=== PATIENT | female | born 1965 | race African-American/Black ===

== ENCOUNTER → 2016-11-20 | Outpatient (CLI) | payer OTHER ==
[2016-06-26 09:27] VITALS: BP 150/83
[~2016-11-20] MED LIST: DOCU-27 PO; HEPARIN PF 500 UNIT/5 ML DISP.SYRIN. IV ONE; HYDR-2678 PO; IBUP-1060 PO; IBUP100O7 PO; IOHEXOL 240 MG/ML 50ML VIAL. PO ONE; IOHEXOL 300 MG/ML 75 ML VIAL IV ONE; MORP15TA PO; OXYC1TAB7 PO
--- NOTE | 2016-11-20 13:10 | RAD ---
EXAM: CT OF THE CHEST, ABDOMEN AND PELVIS WITH INTRAVENOUS CONTRAST. HISTORY: Restaging fallopian tube cancer. TECHNIQUE: Computed tomography of the chest, abdomen and pelvis was performed after the intravenous administration of 75 mL Omnipaque 300. COMPARISON: None. FINDINGS: Bone windows reveal no clearly suspicious lesions. Sclerosis about the left greater than right sacroiliac joints and pubic symphysis are likely degenerative. A right-sided port catheter has its tip in the superior cavoatrial junction. There are changes of bilateral mastectomy. There are with small left supraclavicular lymph nodes. There are no pathologically enlarged mediastinal or axillary lymph nodes. There is no pleural or pericardial effusion. There is at least mild left ventricular enlargement. There are no suspicious pulmonary nodules. There is mild atelectasis or scarring in the left base. There is a 1 cm cyst in the left kidney. The pancreas, adrenal glands, gallbladder, liver and spleen are unremarkable. There are no pathologically enlarged lymph nodes. The previously noted left adnexal lesion is smaller now reveals a normal ovary. There is trace free pelvic fluid. There are no clear peroneal oral mental masses. Left colonic diverticulosis is mild to moderate. There is no obstruction. There is no hydronephrosis. IMPRESSION: 1. Previously noted left supraclavicular, mediastinal, left hilar, and retroperitoneal lymphadenopathy have resolved. No evidence of recurrence. 2. The left adnexal lesion has also mostly resolved. *One or more of the following individualized dose reduction techniques were utilized for this examination: 1. Automated exposure control. 2. Adjustment of the mA and/or kV according to patient size. 3. Use of iterative reconstruction technique.
== END | disposition home or self-care (01) ==
LOC: CT 08:49
PROVIDERS: ATTEND Internal Medicine Hematology & Oncology
DX: C57.00 Malignant neoplasm of unspecified fallopian tube (principal)
CPT/HCPCS: 71260; 74177; Q9966; Q9967

== ENCOUNTER → 2016-12-17 | Outpatient (CLI) | payer OTHER ==
[2016-06-26 09:27] VITALS: BP 150/83
[~2016-12-17] MED LIST changes: -HEPARIN PF 500 UNIT/5 ML DISP.SYRIN. IV ONE; -IOHEXOL 240 MG/ML 50ML VIAL. PO ONE; -IOHEXOL 300 MG/ML 75 ML VIAL IV ONE
--- NOTE | 2016-12-17 14:32 | RAD ---
Indication cough for 2 weeks. PA and lateral views of the chest were obtained. Comparison is made to most recent examination available 04/12/2013. Note is made of a CT examination of the chest 11/20/2016 interpreted as essentially unremarkable Heart size is at the upper limits of normal but unchanged. There is some interstitial prominence in the lungs new relative to the previous plain film exam and not suggested on the referenced CT study one month ago. Findings may reflect interstitial edema or an interstitial inflammatory process, interstitial pneumonitis. There is no consolidated pneumonia. There is no pleural fluid. There is no pneumothorax. A right Port-A-Cath is noted. There is mild scoliosis IMPRESSION: Interval development of interstitial prominence suggesting mild interstitial edema or an interstitial inflammatory process.
== END | disposition home or self-care (01) ==
LOC: RAD 13:32
PROVIDERS: ATTEND Nurse Practitioner Adult Health
DX: R05 Cough (principal)
CPT/HCPCS: 71020

== ENCOUNTER → 2017-04-14 | Outpatient (CLI) | payer OTHER ==
[2016-06-26 09:27] VITALS: BP 150/83
[~2017-04-14] MED LIST changes: +ANAS1TAB3 PO; +CONTRAST GIVEN MC PRN; +DOCU-109 PO; -DOCU-27 PO; +GABA-586 PO; +HEPARIN PF 500 UNIT/5 ML DISP.SYRIN. IV ONE; +IBUP100O24 PO; -IBUP100O7 PO; +IOHEXOL 240 MG/ML 50ML VIAL. PO ONE; +IOHEXOL 300 MG/ML 75 ML VIAL IV ONE; +LETR2.5T18 PO; +OXYC-328 PO
--- NOTE | 2017-04-14 10:09 | RAD ---
EXAM: CT OF THE CHEST, ABDOMEN AND PELVIS WITH INTRAVENOUS CONTRAST. HISTORY: Fallopian tube carcinoma. TECHNIQUE: Computed tomography of the chest, abdomen and pelvis was performed after the intravenous administration of 75 mL Omnipaque 300. COMPARISON: 11/20/2016. 06/14/2016. FINDINGS: Bone windows reveal no suspicious lesions. Subchondral cysts in both superior acetabula reflect hip osteoarthritis. There is also mild degenerative sclerosis about the sacroiliac joints and pubic symphysis. A right-sided port catheter has its tip in the superior cavoatrial junction. Bilateral mastectomy changes are noted. There are no pathologically enlarged supraclavicular, axillary or mediastinal lymph nodes. Calcified mediastinal lymph nodes are likely secondary to old granulomatous disease. There is no pleural or pericardial effusion. The heart is not enlarged. A 2 mm nodule medially in the left apex is stable and likely benign at this small size. There are no clearly suspicious nodules. There are no pathologically enlarged lymph nodes. The previously noted left adnexal mass has resolved. The uterus is surgically absent. There is no ascites. No peritoneal/omental masses are seen. There is a 1 cm cyst in the left kidney. The right kidney is unremarkable. The liver, gallbladder, pancreas, adrenal glands and spleen appear normal. Sigmoid diverticulosis is mild to moderate. There is no obstruction. IMPRESSION: 1. Previously noted supraclavicular, mediastinal and retroperitoneal lymphadenopathy have resolved. The left adnexal mass is no longer detectable. No evidence of active disease. *One or more of the following individualized dose reduction techniques were utilized for this examination: 1. Automated exposure control. 2. Adjustment of the mA and/or kV according to patient size. 3. Use of iterative reconstruction technique.
== END | disposition home or self-care (01) ==
LOC: CT 08:22
PROVIDERS: ATTEND Internal Medicine Hematology & Oncology
DX: C57.00 Malignant neoplasm of unspecified fallopian tube (principal); M25.512 Pain in left shoulder; G89.29 Other chronic pain; Z15.01 Genetic susceptibility to malignant neoplasm of breast; Z15.02 Genetic susceptibility to malignant neoplasm of ovary
CPT/HCPCS: 71260; 74177; Q9966; Q9967

== ENCOUNTER → 2017-04-29 | Outpatient (CLI) | payer OTHER ==
[2016-06-26 09:27] VITALS: BP 150/83
[~2017-04-29] MED LIST changes: -CONTRAST GIVEN MC PRN; -HEPARIN PF 500 UNIT/5 ML DISP.SYRIN. IV ONE; -IOHEXOL 240 MG/ML 50ML VIAL. PO ONE; -IOHEXOL 300 MG/ML 75 ML VIAL IV ONE
--- NOTE | 2017-04-29 13:45 | RAD ---
INDICATION: Low back pain and left leg pain. Chronic symptoms. TECHNIQUE: Sagittal T1, sagittal T2, sagittal STIR, axial T1, and axial T2 sequences are provided. No comparison is available. FINDINGS: There is no malalignment. There is no marrow edema. There is no worrisome marrow lesion. There is an L3 hemangioma, small. There is mild disc desiccation at L3-L4 through L5-S1. Disc height is maintained. The conus medullaris is normal in signal intensity and in position. There is a probable left renal cyst partially included on the first image. The numbering system assumes 5 lumbar type vertebral bodies. Findings by individual level are as follows: L1-L2: There is minimal facet hypertrophy without canal or foraminal compromise. L2-L3: There is minimal facet hypertrophy without canal or foraminal compromise. L3-L4: There is a mild disc bulge and mild facet and ligamentum flavum hypertrophy. There is no canal stenosis, midline AP diameter of the thecal sac still 12 mm. There is no foraminal narrowing. L4-L5: Mild disc bulge and minimal facet hypertrophy are noted, without canal or foraminal compromise. L5-S1: There is a shallow central protrusion with annular fissure. There is no canal or foraminal compromise at any level. IMPRESSION: No high-grade canal or foraminal compromise at any level. Degenerative disc disease and facet and ligamentum flavum hypertrophy are mild. Electronically signed by: Gurwinder Magallanes MD (04/29/2017 1:42 PM) [id number]
== END | disposition home or self-care (01) ==
LOC: MRI 13:31
PROVIDERS: ATTEND Internal Medicine Hematology & Oncology
DX: M51.36 Other intervertebral disc degeneration, lumbar region (principal); M79.605 Pain in left leg
CPT/HCPCS: 72148

== ENCOUNTER → 2017-09-12 | Day surgery (SDC) | payer OTHER ==
[~2017-09-12] MED LIST changes: -ANAS1TAB3 PO; -DOCU-109 PO; -GABA-586 PO; -HYDR-2678 PO; -IBUP-1060 PO; -IBUP100O24 PO; +IV RINGERS,LACTATED 1000ML 1,000 ML IV; -LETR2.5T18 PO; +LIDOCAINE 1% PF 2 ML VIAL. ID; +LIDOCAINE 2% PF Vial for OR 5 ML VIAL.; +MIDAZOLAM HCL/PF 2 MG/2 ML VIAL. IV; -MORP15TA PO; -OXYC-328 PO; -OXYC1TAB7 PO; +PROPOFOL 20 ML IV; +fentaNYL PF VIAL 100 MCG/2 ML VIAL IV
[2017-09-12] MEDS: IV RINGERS,LACTATED 1000ML 1,000 ML IV (09:35)
[2017-09-12 09:39] LABS: POC GLUCOSE 159 mg/dL (70-99)
== END | disposition home or self-care (01) ==
LOC: ENDOS 09:03
DX: Z12.11 Encounter for screening for malignant neoplasm of colon (principal); K64.0 First degree hemorrhoids; K57.30 Diverticulosis of large intestine without perforation or abscess without bleeding; I10 Essential (primary) hypertension; E11.9 Type 2 diabetes mellitus without complications; Z90.710 Acquired absence of both cervix and uterus; Z79.84 Long term (current) use of oral hypoglycemic drugs; M19.90 Unspecified osteoarthritis, unspecified site; F17.210 Nicotine dependence, cigarettes, uncomplicated; Z85.3 Personal history of malignant neoplasm of breast; Z72.89 Other problems related to lifestyle; Z90.13 Acquired absence of bilateral breasts and nipples; Z85.42 Personal history of malignant neoplasm of other parts of uterus
CPT/HCPCS: 45378; 82962; J2704

== ENCOUNTER → 2017-11-10 | Outpatient (CLI) | payer OTHER ==
[~2017-11-10] MED LIST changes: +CONTRAST GIVEN MC; -IV RINGERS,LACTATED 1000ML 1,000 ML IV; -LIDOCAINE 1% PF 2 ML VIAL. ID; -LIDOCAINE 2% PF Vial for OR 5 ML VIAL.; -MIDAZOLAM HCL/PF 2 MG/2 ML VIAL. IV; -PROPOFOL 20 ML IV; -fentaNYL PF VIAL 100 MCG/2 ML VIAL IV
[2017-11-10] MEDS: HEPARIN PF 500 UNIT/5 ML DISP.SYRIN. IV ×2 (10:04)
[2017-11-10] MEDS: IOHEXOL 300 MG/ML 100ML VIAL. IV ×2 (10:06)
[2017-11-10] MEDS: IOHEXOL 240 MG/ML 50ML VIAL. PO ×2 (10:12)
== END | disposition home or self-care (01) ==
LOC: CT 08:35
DX: C57.00 Malignant neoplasm of unspecified fallopian tube (principal); K22.9 Disease of esophagus, unspecified; I21.9 Acute myocardial infarction, unspecified; I51.7 Cardiomegaly; K57.30 Diverticulosis of large intestine without perforation or abscess without bleeding; N28.1 Cyst of kidney, acquired; M16.0 Bilateral primary osteoarthritis of hip; M41.84 Other forms of scoliosis, thoracic region
CPT/HCPCS: 70491; 71260; 74177; Q9966; Q9967

== ENCOUNTER → 2018-04-30 | Outpatient (CLI) | payer OTHER ==
[~2018-04-30] MED LIST changes: -CONTRAST GIVEN MC; +CONTRAST GIVEN. MC
[2018-04-30] MEDS: HEPARIN PF 500 UNIT/5 ML DISP.SYRIN. IV (09:30)
[2018-04-30 10:51] LABS: ALBUMIN 3.5 g/dL (3.4-5.0); ALK PHOS 50 U/L (46-116); ALT (SGPT) 20 U/L (14-59); ANION GAP 10 (6-14); AST (SGOT) 12 U/L (15-37); BLOOD UREA NITROGEN 12 mg/dL (7-20); BUN/CREATININE RATIO 17 (6-20); CALCIUM 8.7 mg/dL (8.5-10.1); CARBON DIOXIDE 23 mmol/L (21-32); CHLORIDE 106 mmol/L (98-107); CREATININE 0.7 mg/dL (0.6-1.0); GFR 106.7; GLUCOSE 130 mg/dL (70-99); POTASSIUM 3.9 mmol/L (3.5-5.1); SODIUM 139 mmol/L (136-145); TOTAL BILIRUBIN 0.3 mg/dL (0.2-1.0); TOTAL PROTEIN 6.9 g/dL (6.4-8.2)
[2018-04-30] MEDS: IOHEXOL 300 MG/ML 100ML VIAL. IV (10:55)
[2018-04-30] MEDS: IOHEXOL 240 MG/ML 50ML VIAL. PO (10:55)
== END | disposition home or self-care (01) ==
LOC: CT 08:09
DX: K57.30 Diverticulosis of large intestine without perforation or abscess without bleeding (principal); M47.898 Other spondylosis, sacral and sacrococcygeal region; M41.84 Other forms of scoliosis, thoracic region; C50.911 Malignant neoplasm of unspecified site of right female breast; C50.912 Malignant neoplasm of unspecified site of left female breast; C57.00 Malignant neoplasm of unspecified fallopian tube; I10 Essential (primary) hypertension; E11.9 Type 2 diabetes mellitus without complications; Z17.1 Estrogen receptor negative status [ER-]; Z87.891 Personal history of nicotine dependence
CPT/HCPCS: 36415; 71260; 74177; 80053; Q9966; Q9967

== ENCOUNTER → 2018-11-20 | Outpatient (CLI) | payer OTHER ==
[2017-09-12 10:19] VITALS: BP 149/61
[~2018-11-20] MED LIST changes: +AMLO5TAB10 PO; +ANAS1TAB47 PO; +CHOL100013 PO; -CONTRAST GIVEN. MC; +DOCU-109 PO; +FEMARA2.5 MG PO; +GABA300C18 PO; +HEPARIN PF 500 UNIT/5 ML DISP.SYRIN. IV ONE; +HYDR-2678 PO; +IBUP-1060 PO; +IBUP100O25 PO; +ICOS1CAP PO; +IOHEXOL 240 MG/ML 50ML VIAL. PO ONE; +IOHEXOL 300 MG/ML 100ML VIAL. IV ONE; +METF500T16 PO; +MORP15TA PO; +OLAP150T PO; +OLAP50CA PO; +OXYC1TAB22 PO; +OXYC1TAB7 PO; +SITA100T PO
--- NOTE | 2018-11-20 12:36 | RAD ---
PQRS Compliance statement: One or more of the following individualized dose reduction techniques were utilized for this examination: 1. Automated exposure control. 2. Adjustment of the mA and/or kV according to patient size. 3. Use of iterative reconstruction technique. Indication:BILAT BREAST/FALLOPIAN CA TECHNIQUE: CT chest, abdomen and pelvis with IV contrast with multiplanar reformats. COMPARISON: 04/30/2018 FINDINGS: Right chest wall Chemo-Port is seen with its tip in the SVC. Heart is normal in size. No pericardial or pleural effusion. No axillary, mediastinal or hilar adenopathy. Central airways are patent. Stable 2 mm nodule in the medial aspect of the left upper lobe (series 2 image 10). No suspicious bony lesion. Liver, spleen, gallbladder, pancreas, adrenals and right kidney within normal limits. Simple appearing cyst is seen in the left kidney measuring 1.6 cm. No enlarged retroperitoneal or pelvic adenopathy. No free pelvic fluid or ascites. No bowel obstruction. Diffuse colonic diverticulosis. Status post hysterectomy. Urinary bladder is within normal limits. No suspicious bony lesion. IMPRESSION: No evidence metastatic disease. Electronically signed by: Marko Hernandez DO (11/20/2018 12:33 PM) [id number]
== END | disposition home or self-care (01) ==
LOC: CT 09:40
PROVIDERS: ATTEND Internal Medicine Hematology & Oncology
DX: K57.30 Diverticulosis of large intestine without perforation or abscess without bleeding (principal); R91.1 Solitary pulmonary nodule; Z90.710 Acquired absence of both cervix and uterus; Z85.3 Personal history of malignant neoplasm of breast; Z85.42 Personal history of malignant neoplasm of other parts of uterus
CPT/HCPCS: 71260; 74177; Q9966; Q9967

== ENCOUNTER 2019-10-04 09:36 | Emergency (ER) | payer OTHER ==
[~2019-10-04] VITALS: Ht 170.2 cm; Wt 96.2 kg
[~2019-10-04 09:36] MED LIST changes: -HEPARIN PF 500 UNIT/5 ML DISP.SYRIN. IV ONE; -IOHEXOL 240 MG/ML 50ML VIAL. PO ONE; -IOHEXOL 300 MG/ML 100ML VIAL. IV ONE
[2019-10-04 10:15] VITALS: BP 146/65
--- NOTE | 2019-10-04 10:57 | PHYS DOC ---
Past Medical History Past Medical History: Cancer Additional Past Medical Histor: breast CA with chemo Past Surgical History: , Hysterectomy, Tonsillectomy Additional Past Surgical Histo: dbl mastectomy Alcohol Use: Occasionally Drug Use: None Adult General Chief Complaint Chief Complaint: THUMB HPI HPI Patient is a 54 year old female who presents after falling and ice on July and hurting her right thumb. The patient states that the thumb is never healed and still hurts. She rates it as 8 out of 10 in severity and sharp. Review of Systems Review of Systems Constitutional: Denies fever or chills [] Eyes: Denies change in visual acuity, redness, or eye pain [] HENT: Denies nasal congestion or sore throat [] Respiratory: Denies cough or shortness of breath [] Cardiovascular: No additional information not addressed in HPI [] GI: Denies abdominal pain, nausea, vomiting, bloody stools or diarrhea [] : Denies dysuria or hematuria [] Musculoskeletal: Reports R thumb pain. Integument: Denies rash or skin lesions [] Neurologic: Denies headache, focal weakness or sensory changes [] Endocrine: Denies polyuria or polydipsia [] Complete systems were reviewed and found to be within normal limits, except as documented in this note. Allergies Allergies Allergies Coded Allergies Type Severity Reaction Last Updated Verified No Known Drug Allergies 09/12/17 No Physical Exam Physical Exam Constitutional: Well developed, well nourished, no acute distress, non-toxic appearance. [] HENT: Normocephalic, atraumatic, bilateral external ears normal, oropharynx moist, no oral exudates, nose normal. [] Eyes: PERRLA, EOMI, conjunctiva normal, no discharge. [] Neck: Normal range of motion, no tenderness, supple, no stridor. [] Extremities: Tenderness to base of Right thumb, with reduced range of motion. MCP joint tenderness is localized to the ulnar side of the joint. Neurologic: Alert and oriented X 3, normal motor function, normal sensory function, no focal deficits noted. [] Psychologic: Affect normal, judgement normal, mood normal. [] Current Patient Data Vital Signs Vital Signs Date Time Temp Pulse Resp B/P (MAP) Pulse Ox O2 Delivery O2 Flow Rate FiO2 10/04/19 10:15 98.3 79 18 146/65 (92) 100 Room Air 98.3 EKG EKG [] Radiology/Procedures Radiology/Procedures [][facility] [address] [place] [address] IMAGING REPORT Signed PATIENT: ELENA ABRAMS ACCOUNT: [id number] : 1965 LOCATION: ER AGE: 54 SEX: F EXAM STATUS: REG ER ORD. PHYSICIAN: LUIS ALBERTO FOREMAN APRN REASON: fall, thumb pain, PT STATES MCP JOINT PAIN AND LROM PROCEDURE: HAND RIGHT 3V Examination: HAND RIGHT 3V History: Metacarpophalangeal joint pain with limited range of motion Comparison/Correlation: None Findings: Total 3 images of the right hand were obtained. A ring is present about the fourth digit proximal phalanx limiting evaluation at this site and also at the midshaft level on the lateral view. Slight degenerative changes involving fourth digit distal interfrontal region noted. No displaced fracture or bone destruction. Spurring about the first digit proximal phalangeal base noted. Accessory ossicle about the second digit proximal phalanx noted with minimal spurring also seen. Impression: Mild degenerative change. Electronically signed by: Kristofer Spencer MD (10/04/2019 11:12 AM) [facility] DICTATED and SIGNED BY: KRISTOFER SPENCER MD DATE: 10/04/191111 Course & Med Decision Making Course & Med Decision Making Pertinent Labs and Imaging studies reviewed. (See chart for details) I will obtain imaging of the thumb, I suspect that she has gamekeeper's thumb. Will refer to primary care doctor to have referred to hand surgeon. Dragon Disclaimer Dragon Disclaimer This electronic medical record was generated, in whole or in part, using a voice recognition dictation system. Departure Departure Impression: Primary Impression: Pain of right thumb Disposition: HOME, SELF-CARE Condition: STABLE Referrals: LUIS ALBERTO COCHRAN MD (PCP) Patient Instructions: Gamekeeper's, Skier's Thumb Additional Instructions: Thank you for visiting [facility]. We appreciate you trusting us with your care. If any additional problems come up don't hesitate to return to visit us. Please follow up with your primary care provider so they can plan additional care if needed and know about the problem that you had. If symptoms worsen come back to the Emergency Department. Any concerning symptoms that start such as chest pain, shortness of air, weakness or numbness on one side of the body, running high fevers or any other concerning symptoms return to the ER. Please follow up with your primary care doctor to discuss with him a referral to a hand surgeon LUIS ALBERTO FOREMAN APRN Oct 04, 2019 10:56
--- NOTE | 2019-10-04 11:15 | RAD ---
Examination: HAND RIGHT 3V History: Metacarpophalangeal joint pain with limited range of motion Comparison/Correlation: None Findings: Total 3 images of the right hand were obtained. A ring is present about the fourth digit proximal phalanx limiting evaluation at this site and also at the midshaft level on the lateral view. Slight degenerative changes involving fourth digit distal interfrontal region noted. No displaced fracture or bone destruction. Spurring about the first digit proximal phalangeal base noted. Accessory ossicle about the second digit proximal phalanx noted with minimal spurring also seen. Impression: Mild degenerative change. Electronically signed by: Kristofer Hanna MD (10/04/2019 11:12 AM) [facility]
[2019-10-04] MEDS: KETOROLAC TROMETHAMINE 10 MG TABLET PO STA (11:27)
== END 2019-10-04 11:39 | disposition home or self-care (01) ==
LOC: ER 09:36
DX: M79.644 Pain in right finger(s) (principal); G89.11 Acute pain due to trauma; W18.39XA Other fall on same level, initial encounter; Y93.89 Activity, other specified; Y92.89 Other specified places as the place of occurrence of the external cause; Y99.8 Other external cause status
CPT/HCPCS: 73130; 99284